=== PATIENT | female | born 1990 | race Caucasian/White ===

== ENCOUNTER 2018-01-06 00:04 | Inpatient (IN) ==
[2018-01-06] MEDS ORDERED: RINGER'S SOLUTION,LACTATED 1,000 ML IV ONE (00:14)
[2018-01-06] MEDS ORDERED: ONDANSETRON HCL/PF 2 MG/ML VIAL IV PRN ×2 (00:14→09:19)
[2018-01-06] MEDS ORDERED: OXYTOCIN/DEXTROSE 5%-WATER 30 UNITS/500 ML BAG IV ONE ×2 (00:14→12:24)
[2018-01-06] MEDS ORDERED: RINGER'S SOLUTION,LACTATED 1,000 ML IV PRN ×2 (00:14→08:36)
[2018-01-06] MEDS: DEXTROSE 5%-LACTATED RINGERS 1,000 ML IV PRN ×2 (00:44→10:12)
[2018-01-06] MEDS: CALCIUM CARBONATE 500 MG TAB.CHEW PO PRN ×2 (01:29→07:28)
--- NOTE | 2018-01-06 09:09 | PN ---
Progess Note - Interim Date: 01/06/18 Time: 08:45 Narrative: 01/06/18 09:08 c/o ctxs 02/05 SVE: 3/80/-2, arom-clear FHTs: 140's, mod betty, no decels, +accels [place]: q2 min A/P: anticipate epidural and GBS neg
[2018-01-06] MEDS ORDERED: NALOXONE HCL 1 MG/1 ML SYRG IV PRN (09:19)
[2018-01-06] MEDS ORDERED: BUPIVACAINE HCL/0.9 % NACL/PF 250 ML EP PRN (09:19)
[2018-01-06] MEDS: BUPIVACAINE HCL/PF 30 ML VIAL EP SCH ×2 (10:11→10:45)
--- NOTE | 2018-01-06 10:13 | OR ---
Anesthesia Procedure Note - Anesthesia Procedure Note Date of Service: 01/06/18 Narrative: Vital Signs - Last Taken Temp 37.2 C 01/06/18 09:42 Pulse 81 01/06/18 09:42 Resp 18 01/06/18 09:42 BP 138/78 01/06/18 09:42 Pulse Ox 99 01/06/18 09:42 01/06/18 10:11 ANESTHESIA PROCEDURE NOTE Date of Procedure: 01/06/2018. Time of procedure: 09. Performed by: Arturo Shane CRNA Simulation Developer: None. Preprocedure diagnosis: Active labor. Post procedure diagnosis: Same. Procedure: Insertion of labor epidural. Indications: The patient is a 27 -year-old female in active labor requesting labor epidural for pain management. Findings: See below. Details of the procedure: The patient was placed in a sitting position. DuraPrep as well as Betadine swabs X3 was applied to the patient's back. Patient was then draped in a sterile fashion. Lidocaine 1% was infiltrated to the skin and subcutaneous tissues at the level of the L4-5 interspace. The epidural space was identified using a 18-gauge Tuohy needle with loss-of- resistance technique. Epidural catheter was inserted to a depth of 12 centimeters at skin. Negative test dose was elicited using 3 mL of 1.5% preservative-free lidocaine plus epinephrine 1 200,000. The epidural catheter was then taped and secured in place. A loading dose of 8 mL of 0.25% preservative-free bupivacaine was administered to the epidural catheter after negative aspiration for blood and CSF. EBL: Minimal. Fluids: N/A. Specimen: N/A. Post procedure condition: The patient tolerated the procedure well. No complications were noted. Thank you for this consultation. Arturo Shane CRNA
--- NOTE | 2018-01-06 10:50 | OR ---
Anesthesia Procedure Note - Anesthesia Procedure Note Date of Service: 01/06/18 Narrative: Vital Signs - Last Taken Temp 37.2 C 01/06/18 10:14 Pulse 81 01/06/18 10:14 Resp 20 01/06/18 10:14 BP 138/78 01/06/18 10:14 Pulse Ox 99 01/06/18 10:14 01/06/18 10:48 ANESTHESIA PROCEDURE NOTE Date of Procedure: 01/06/2018. Time of procedure: 1035. Performed by: Arturo Shane CRNA Hog Cooler: None. Preprocedure diagnosis: In adequate analgesia with labor epidural. Post procedure diagnosis: Same. Procedure: Removal and rensertion of labor epidural. Indications: The patient is a 27 -year-old female with an indwelling labor epidural and an adequate relief of her labor contractions. Findings: See below. Details of the procedure: The patient was placed in a sitting position. The epidural catheter was removed intact. DuraPrep as well as Betadine swabs X3 was applied to the patient's back. Patient was then draped in a sterile fashion. Lidocaine 1% was infiltrated to the skin and subcutaneous tissues at the level of the L3-4 interspace. The epidural space was identified using a 18- gauge Tuohy needle with [id number] technique. Epidural catheter was inserted to a depth of 10 centimeters at skin. Negative test dose was elicited using 3 mL of 1.5% preservative-free lidocaine plus epinephrine 1 200,000. The epidural catheter was then taped and secured in place. A loading dose of 8 mL of 0.25% preservative-free bupivacaine was administered to the epidural catheter after negative aspiration for blood and CSF. EBL: Minimal. Fluids: N/A. Specimen: N/A. Post procedure condition: The patient tolerated the procedure well. No complications were noted. Thank you for this consultation. Arturo Shane CRNA
[2018-01-06] MEDS ORDERED: oxyCODONE HCL/ACETAMINOPHEN 1 TAB TABLET PO PRN (12:24)
[2018-01-06] MEDS ORDERED: BENZOCAINE/MENTHOL 81 SPRAY CAN TP PRN (12:24)
[2018-01-06] MEDS ORDERED: SENNOSIDES 8.6 MG TABLET PO PRN (12:24)
[2018-01-06] MEDS ORDERED: HYDROCORTISONE 30 APPL TUBE TP PRN (12:24)
[2018-01-06] MEDS ORDERED: BISACODYL 10 MG SUPP.RECT RC PRN (12:24)
[2018-01-06] MEDS ORDERED: GLYCERIN/WITCH HAZEL LEAF 40 APPL BOX TP PRN (12:24)
--- NOTE | 2018-01-06 12:28 | OR ---
Operative Report - Dictated Report Narrative: Spontaneous Vaginal Delivery Viable male with APGARS of 9 and 9. Delivered at 1212. Presentation was MARIA DE JESUS. A nuchal cord was noted and reduced the head prior to delivery of the shoulders. The shoulders delivered transverse without difficulty followed by the remainder of the baby. The baby was placed on the maternal abdomen and spontaneous cry was noted.The cord was clamped and cut after approximately 60 seconds. Weight: 7 pounds 13.7 ounces or 3565 g Placenta was delivered spontaneously and intact. A first-degree vaginal laceration was noted and hemostatic without repair. Estimated blood loss: 100 ml Mother and baby tolerated delivery well. History for Definition: * The number of deliveries resulting in a live the patient experienced prior to current hospitalization * The previous delivery of live twins or any live multiple gestation is considered one live event. *If primagravida or nulliparous is documented select zero for the number of previous live births. Live Events: 1
[2018-01-06] MEDS ORDERED: CALCIUM CARBONATE 500 MG TAB.CHEW PO PRN (12:29)
[2018-01-06] MEDS: IBUPROFEN 800 MG TABLET PO PRN ×2 (15:17→21:19)
[2018-01-06] MEDS: oxyCODONE HCL/ACETAMINOPHEN 1 TAB TABLET PO PRN ×3 (15:17→21:20)
[2018-01-06] MEDS: DOCUSATE SODIUM 100 MG CAPSULE PO SCH (21:20)
[2018-01-07] MEDS: oxyCODONE HCL/ACETAMINOPHEN 1 TAB TABLET PO PRN ×4 (00:23→23:52)
[2018-01-07] MEDS: IBUPROFEN 800 MG TABLET PO PRN ×4 (04:05→23:51)
[2018-01-07] MEDS: DOCUSATE SODIUM 100 MG CAPSULE PO SCH ×3 (07:27→20:38)
--- NOTE | 2018-01-07 09:42 | PN ---
Progess Note - Interim Date: 01/07/18 Time: 09:41 Narrative: 01/07/18 09:41 progress note Subjective: The patient is doing well. She is ambulating, voiding, tolerating by mouth. She has minimal pain and moderate lochia. Objective: General: No acute distress Abdomen: Soft, nontender, fundus is firm just below the umbilicus Extremities: minimal edema, nontender to palpation Assessment and plan: day 1 Feeding: bottle Pain: Controlled with by mouth medication control: nexplanon Routine care.
[2018-01-08] MEDS: IBUPROFEN 800 MG TABLET PO PRN (06:10)
[2018-01-08 06:17] VITALS: BP 133/79
[2018-01-08] MEDS: DOCUSATE SODIUM 100 MG CAPSULE PO SCH (08:41)
--- NOTE | 2018-01-08 11:45 | PN ---
Progess Note - Interim Date: 01/08/18 Time: 11:45 Narrative: 01/08/18 11:45 progress note Subjective: The patient is doing well. She is ambulating, voiding, tolerating by mouth. She has minimal pain and moderate lochia. Objective: General: No acute distress Abdomen: Soft, nontender, fundus is firm just below the umbilicus Extremities: minimal edema, nontender to palpation Assessment and plan: day 2 Feeding: bottle Pain: Controlled with by mouth medication control: nexplanon Routine care.
== END 2018-01-08 12:10 | disposition home or self-care (01) | DRG 775 ==
LOC: OB 00:04
PROVIDERS: ADMIT Obstetrics & Gynecology Gynecologic Oncology; ATTEND Obstetrics & Gynecology Gynecologic Oncology
DX: O69.81X0 Labor and delivery complicated by cord around neck, without compression, not applicable or unspecified; Z37.0 Single live birth; O13.4 Gestational [pregnancy-induced] hypertension without significant proteinuria, complicating childbirth; O70.0 First degree perineal laceration during delivery; Z3A.39 39 weeks gestation of pregnancy
CPT/HCPCS: 59025